=== PATIENT | female | born 1940 | race Caucasian/White ===

== ENCOUNTER → 2016-10-24 | Outpatient (REF) | payer MEDICARE ==
[2016-10-24 11:33] LABS: MEAN CORPUSCULAR HEMOGLOBIN 32.3 pg (27.0-33.0); MEAN CORPUSCULAR HGB CONC 32.9 g/dl (32.0-36.5); MEAN CORPUSCULAR VOLUME 98.3 fl (80.0-96.0); RED CELL DISTRIBUTION WIDTH 14.8 % (11.5-14.5); WHITE BLOOD COUNT 5.4 K/mm3 (4.0-10.0)
[2016-10-24 11:56] LABS: ALBUMIN 3.5 GM/DL (3.2-5.2); ALBUMIN/GLOBULIN RATIO 0.97 (1.00-1.93); ALKALINE PHOSPHATASE 100 U/L (45-117); ALT/SGPT 14 U/L (12-78); ANION GAP 5 MEQ/L (8-16); AST/SGOT 18 U/L (15-37); BILIRUBIN,TOTAL 0.3 MG/DL (0.2-1.0); BLOOD UREA NITROGEN 13 MG/DL (7-18); CALCIUM LEVEL 8.7 MG/DL (8.8-10.2); CARBON DIOXIDE LEVEL 28 MEQ/L (21-32); CHLORIDE LEVEL 108 MEQ/L (98-107); CHOLESTEROL LEVEL 254 MG/DL (<200); CREATININE FOR GFR 0.82 MG/DL (0.55-1.02); GLOMERULAR FILTRATION RATE > 60.0 (>39); GLUCOSE, FASTING 93 MG/DL (83-110); POTASSIUM SERUM 4.3 MEQ/L (3.5-5.1); SODIUM LEVEL 141 MEQ/L (136-145); TOTAL PROTEIN 7.1 GM/DL (6.4-8.2); TRIGLYCERIDES LEVEL 52 MG/DL (<150)
== END ==
LOC: M SFHCCLAY 08:35
PROVIDERS: ATTEND Nurse Practitioner Family
DX: E78.4 Other hyperlipidemia (principal)

== ENCOUNTER → 2017-01-23 | Outpatient (CLI) | payer MEDICARE ==
--- NOTE | 2017-01-23 09:57 | REP ---
Right ankle four views: Comparison is 06/04/2015. There are faintly visible calcifications interposed between the distal fibula and lateral cortex of the talus. This is unchanged. This could represent intra-articular calcification or chondrocalcinosis. There is no fracture or dislocation. The joint spaces are normal. There are no other calcifications. No effusion. There are no calcaneal spurs. This talar joint is unremarkable. Impression: Intra-articular calcifications laterally as described, chondrocalcinosis versus intra-articular joint calcification. 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 No change from the prior study. Signed by James Yeh MD 01/23/2017 09:49 A
== END ==
LOC: M CLY 09:15
PROVIDERS: ATTEND Nurse Practitioner Family
DX: M25.471 Effusion, right ankle (principal); M11.20 Other chondrocalcinosis, unspecified site; E78.4 Other hyperlipidemia; Z79.899 Other long term (current) drug therapy
CPT/HCPCS: 73610; 82310; 82728; 82746; 83735; 83970; 84100; 84436; 84443; 84466; 84479; 85027; 85652; 86038; 86431; G0463

== ENCOUNTER → 2017-01-23 | Outpatient (REF) | payer MEDICARE ==
[2017-01-23 17:57] LABS: MEAN CORPUSCULAR HEMOGLOBIN 33.3 pg (27.0-33.0); MEAN CORPUSCULAR HGB CONC 33.9 g/dl (32.0-36.5); MEAN CORPUSCULAR VOLUME 98.4 fl (80.0-96.0); RED CELL DISTRIBUTION WIDTH 15.4 % (11.5-14.5); WHITE BLOOD COUNT 5.2 K/mm3 (4.0-10.0)
[2017-01-24 09:52] LABS: FERRITIN 5 NG/ML (8-252); MAGNESIUM LEVEL 2.3 MG/DL (1.8-2.4); PERCENT SATURATION 18.2 % (13.2-45.0); PHOSPHORUS LEVEL 2.9 MG/DL (2.5-4.9); T UPTAKE 32 % (30-39); THYROXINE (T4) 6.5 UG/DL (4.5-12.0); TOTAL IRON BINDING CAPACITY 341 UG/DL (250-450)
[2017-01-24 09:59] LABS: FOLATE 10.8 NG/ML (>5.4)
[2017-01-25 14:15] LABS: SJOGREN'S ANTI SS-A <0.2 AI (0.0-0.9); SJOGREN'S ANTI SS-B <0.2 AI (0.0-0.9)
== END ==
LOC: M SFHCCLAY 09:13
PROVIDERS: ATTEND Nurse Practitioner Family
DX: M11.20 Other chondrocalcinosis, unspecified site (principal); M25.471 Effusion, right ankle

== ENCOUNTER → 2017-01-24 | Outpatient (REF) | payer MEDICARE | LOC: M SFHCCLAY 07:38 | PROVIDERS: ATTEND Nurse Practitioner Family | DX: M11.20 Other chondrocalcinosis, unspecified site (principal); Z53.9 Procedure and treatment not carried out, unspecified reason ==

== ENCOUNTER → 2017-01-30 | Outpatient (REF) | payer MEDICARE | LOC: M SFHCCLAY 07:58 | PROVIDERS: ATTEND Nurse Practitioner Family | DX: M11.20 Other chondrocalcinosis, unspecified site (principal); Z79.899 Other long term (current) drug therapy ==

== ENCOUNTER → 2017-07-25 | Outpatient (REF) | payer MEDICARE ==
[2017-07-25 12:07] LABS: ALBUMIN 3.7 GM/DL (3.2-5.2); ALBUMIN/GLOBULIN RATIO 1.03 (1.00-1.93); ALKALINE PHOSPHATASE 102 U/L (45-117); ALT/SGPT 13 U/L (12-78); AST/SGOT 20 U/L (7-37); BILIRUBIN,DIRECT < 0.1 MG/DL (0.0-0.2); BILIRUBIN,TOTAL 0.4 MG/DL (0.2-1.0); CHOLESTEROL LEVEL 230 MG/DL (<200); CHOLESTEROL RISK RATIO 3.239 (<5); HDL CHOLESTEROL 71 MG/DL (>40); LDL CHOLESTEROL 146.6 MG/DL (<100); NON-HDL-C 159 MG/DL; TOTAL PROTEIN 7.3 GM/DL (6.4-8.2); TRIGLYCERIDES LEVEL 62 MG/DL (<150)
== END ==
LOC: M SFHCCLAY 08:57
DX: E78.4 Other hyperlipidemia (principal)
CPT/HCPCS: 80076

== ENCOUNTER → 2017-11-13 | Outpatient (REF) | payer MEDICARE ==
[2017-11-13 11:41] LABS: CHOLESTEROL LEVEL 228 MG/DL (<200); HDL CHOLESTEROL 75 MG/DL (>40); LDL CHOLESTEROL 139.8 MG/DL (<100); NON-HDL-C 153 MG/DL; TRIGLYCERIDES LEVEL 66 MG/DL (<150)
== END ==
LOC: M SFHCCLAY 08:02
DX: E78.4 Other hyperlipidemia (principal)
CPT/HCPCS: 80061

== ENCOUNTER → 2018-09-16 | Outpatient (REF) | payer MEDICARE ==
[2018-09-16 17:19] LABS: ALBUMIN 3.7 GM/DL (3.2-5.2); ALT/SGPT 20 U/L (12-78); BILIRUBIN,TOTAL 0.3 MG/DL (0.2-1.0); BLOOD UREA NITROGEN 19 MG/DL (7-18); CALCIUM LEVEL 8.7 MG/DL (8.8-10.2); CARBON DIOXIDE LEVEL 31 MEQ/L (21-32); CHLORIDE LEVEL 106 MEQ/L (98-107); CHOLESTEROL LEVEL 283 MG/DL (<200); CHOLESTEROL RISK RATIO 3.985 (<5); CREATININE FOR GFR 0.95 MG/DL (0.55-1.30); GLOMERULAR FILTRATION RATE > 60.0 (>39); GLUCOSE, FASTING 96 MG/DL (70-100); HDL CHOLESTEROL 71 MG/DL (>40); LDL CHOLESTEROL 197 MG/DL (<100); NON-HDL-C 212 MG/DL; SODIUM LEVEL 142 MEQ/L (136-145); TOTAL PROTEIN 7.2 GM/DL (6.4-8.2); TRIGLYCERIDES LEVEL 77 MG/DL (<150)
[2018-09-16 17:22] LABS: HEMATOCRIT 35.5 % (36.0-47.0); HEMOGLOBIN 11.8 g/dl (12.0-15.5); MEAN CORPUSCULAR HEMOGLOBIN 31.4 pg (27.0-33.0); MEAN CORPUSCULAR HGB CONC 33.2 g/dl (32.0-36.5); MEAN CORPUSCULAR VOLUME 94.4 fl (80.0-96.0); PLATELET COUNT, AUTOMATED 236 10^3/uL (150-450); RED BLOOD COUNT 3.76 10^6/uL (4.00-5.40); WHITE BLOOD COUNT 5.3 10^3/uL (4.0-10.0)
== END ==
LOC: M SFHCCLAY 09:18
PROVIDERS: ATTEND Nurse Practitioner Family
DX: R60.9 Edema, unspecified (principal); E78.49 Other hyperlipidemia

== ENCOUNTER → 2018-11-19 | Outpatient (REF) | payer MEDICARE ==
[2018-11-19 11:32] LABS: HEMATOCRIT 34.6 % (36.0-47.0); HEMOGLOBIN 11.7 g/dl (12.0-15.5); MEAN CORPUSCULAR HEMOGLOBIN 32.7 pg (27.0-33.0); MEAN CORPUSCULAR HGB CONC 33.8 g/dl (32.0-36.5); MEAN CORPUSCULAR VOLUME 96.6 fl (80.0-96.0); PLATELET COUNT, AUTOMATED 230 10^3/uL (150-450); RED BLOOD COUNT 3.58 10^6/uL (4.00-5.40); WHITE BLOOD COUNT 5.5 10^3/uL (4.0-10.0)
[2018-11-19 11:37] LABS: CHOLESTEROL RISK RATIO 3.402 (<5); PERCENT SATURATION 21.3 % (13.2-45.0)
[2018-11-19 11:45] LABS: FOLATE 14.1 NG/ML (>5.4)
== END ==
LOC: M SFHCCLAY 08:23
PROVIDERS: ATTEND Nurse Practitioner Family
DX: D64.9 Anemia, unspecified (principal); E78.49 Other hyperlipidemia

== ENCOUNTER → 2018-12-19 | Outpatient (CLI) | payer MEDICARE ==
--- NOTE | 2018-12-19 12:34 | REP ---
Bilateral lower extremity artery duplex ultrasound of the: Right lower extremity: Right brachial artery peak systole: 170 mmHg. Right dorsalis pedis peak systole: 166 mmHg. Right MARINE SERVICE STATION ATTENDANT peak systole: 162 mmHg. BLAYNE: 0.98. Peak Systolic Phasicity Velocity MANAGER RAIL 129 triphasic Profunda 68.7 triphasic SFA prox 86.7 triphasic SFA mid 86.8 triphasic SFA dist 75.0 triphasic Pop 67.6 triphasic SRIDHAR prox 61.9 triphasic Tib/P tr 86.1 monophasic MARINE SERVICE STATION ATTENDANT pr 113/393 monophasic MARINE SERVICE STATION ATTENDANT dst 46.8 monophasic SRIDHAR dst 85.2 monophasic Left lower extremity: Left brachial peak systole: 162 mmHg Left dorsalis pedis peak systole: 164 mmHg. Left MARINE SERVICE STATION ATTENDANT peak systole: 156 mmHg. BLAYNE 0.96. Peak Systolic Phasicity Velocity MANAGER RAIL 60.9 biphasic Profunda 48.8 biphasic SFA prox 79.7 biphasic SFA mid 69.9 biphasic SFA dist 66.6 biphasic Pop 56.4 biphasic SRIDHAR prox 47.6 biphasic Tib/P tr 46.2 biphasic MARINE SERVICE STATION ATTENDANT pr 72.7 biphasic MARINE SERVICE STATION ATTENDANT dst 55.1 biphasic SRIDHAR dst 71.2 biphasic There is minimal atheromatous plaque at the thighs bilaterally. There is moderate atheromatous plaque in the calves bilaterally. There is a stenosis in the right proximal MARINE SERVICE STATION ATTENDANT. Wave forms distal to the right MARINE SERVICE STATION ATTENDANT are monophasic. The BLAYNE is maybe slightly overestimated because of mildly echogenic calf vessels. Fluid is incidentally identified in the right ankle joint . Electronically Signed by James Yeh MD 12/19/2018 12:26 P
== END ==
LOC: M RAD 08:31
PROVIDERS: ATTEND Surgery Vascular Surgery
DX: R09.89 Other specified symptoms and signs involving the circulatory and respiratory systems (principal)

== ENCOUNTER → 2018-12-31 | Outpatient (CLI) | payer MEDICARE ==
[~2018-12-31] MED LIST: ADVI100T PO; EQ A EXT; HYDR12CA PO; PRAV10TA3 PO
[2018-12-31 18:47] LABS: BASO % 0.5 % (0.0-1.0); EOS # 0.3 10^3/uL (0.0-0.50); HEMATOCRIT 34.6 % (36.0-47.0); HEMOGLOBIN 11.5 g/dl (12.0-15.5); LYMPH # 1.9 10^3/uL (1.5-4.5); MEAN CORPUSCULAR HEMOGLOBIN 31.4 pg (27.0-33.0); MEAN CORPUSCULAR HGB CONC 33.2 g/dl (32.0-36.5); MEAN CORPUSCULAR VOLUME 94.5 fl (80.0-96.0); MONO # 0.8 10^3/uL (0.0-0.8); MONO % 10.2 % (0.0-5.0); NEUTROPHILS # 4.5 10^3/uL (1.8-7.7); PLATELET COUNT, AUTOMATED 277 10^3/uL (150-450); RED BLOOD COUNT 3.66 10^6/uL (4.00-5.40); WHITE BLOOD COUNT 7.6 10^3/uL (4.0-10.0)
[2018-12-31 19:01] LABS: BLOOD UREA NITROGEN 16 MG/DL (7-18); CALCIUM LEVEL 8.6 MG/DL (8.8-10.2); CARBON DIOXIDE LEVEL 28 MEQ/L (21-32); CHLORIDE LEVEL 106 MEQ/L (98-107); CREATININE FOR GFR 0.89 MG/DL (0.55-1.30); GLOMERULAR FILTRATION RATE > 60.0 (>39); GLUCOSE, FASTING 92 MG/DL (70-100); SODIUM LEVEL 140 MEQ/L (136-145)
== END ==
LOC: M LAB 16:55
PROVIDERS: ATTEND Surgery Vascular Surgery
DX: I70.203 Unspecified atherosclerosis of native arteries of extremities, bilateral legs (principal); I87.2 Venous insufficiency (chronic) (peripheral)

== ENCOUNTER 2019-01-07 06:56 | Outpatient (CLI) | payer MEDICARE ==
[~2019-01-07 06:56] MED LIST changes: +HEPARIN 1,000 UNITS/ML 10ML VIAL (FOR RADIOLOGY& DIALYSIS ONLY) As Ordered ONE; +ISOVUE-300 61% 50ML VIAL (Q9967) As Ordered ONE; +LIDOCAINE 2% MDV 20 ML VIAL As Ordered ONE; +MIDAZOLAM INJ 2 MG/2 ML VIAL (J2250) As Ordered ONE; +fentaNYL 100 MCG/2 ML INJECTION (J3010) As Ordered ONE
[2019-01-07] MEDS ORDERED: ISOVUE-300 61% 50ML VIAL (Q9967) As Ordered ONE (08:06)
[2019-01-07] MEDS ORDERED: NITROGLYCERIN IN D5W 25MG/250ML (100MCG/ML) As Ordered ONE (08:39)
--- NOTE | 2019-01-07 09:31 | ROOPDOC ---
[facility] Report Of Operation Report of Operation DATE OF PROCEDURE: 01/07/19 PREPROCEDURE DIAGNOSES: Atherosclerosis of the upper [place] vessels bilateral lower extremity POSTPROCEDURE DIAGNOSES: Same PROCEDURE: 1. Ultrasound-guided access left common femoral artery 2. Aortoiliofemoral femoral arteriogram with oblique views 3. Right lower extremity arteriogram and runoff, with selection of the common femoral artery and the popliteal artery 4. Angioplasty of the tibioperoneal trunk and proximal peroneal artery with a 3 x 100 starling balloon 5. Angioplasty of the peroneal artery with a 2 x 2 120 starling balloon 6. Completion arteriogram 7. Minx closure left common femoral artery SURGEON: Suyapa Maki MD ANESTHESIA: Local anesthesia with lidocaine 5 mL. Moderate intravenous conscious sedation was supervised by Dr. Maki. The patient was independently monitored by registered nurse assigned to the Department of radiology using automated blood pressure, EKG, and pulse oximetry. The detail conscious record is permanently stored in the hospital information system. The following is the conscious sedation record: Start time 07:52, stop time 08:59, Versed 1 mg IV, fentanyl 50 g IV CONTRAST: Isovue 50 mL INDICATION FOR PROCEDURE: This is a very pleasant 78-year-old patient with significant peripheral edema and concern for arterial insufficiency on recent noninvasive study. Her right lower extremity would benefit from at least 20-30 mmHg compression, but based on her noninvasive study we were not sure she had another tibial flow to tolerate compression. There was also concern for biphasic flow throughout the left lower extremity so we will access from the left common femoral artery and treat any left iliofemoral disease if present. Risks benefits and alternatives to an arteriogram with potential intervention were explained to the patient. We also discussed the procedure with her daughter. All questions were answered. Informed consent was obtained. INTERPRETATION: 1. The distal aorta iliofemoral arteries are widely patent. No proximal stenosis noted on the left or the right with AP or TEMPLE views. 2. The right lower extremity profunda, SSA, popliteal arteries are widely patent. 3. The right anterior tibial artery is widely patent and is the largest and primary tibial flow to the foot. The tibioperoneal trunk has several areas of 70% stenosis proximally and mid, with milder stenosis distal. This limits inflow to the peroneal and posterior tibial arteries which are patent with only mild nonflow limiting stenosis. 4. After angioplasty the tibia and peroneal trunk, there is less than 20% stenosis and a dramatic improvement inflow into the posterior tibial artery. There is some spasm in the peroneal artery after angioplasty, which was relieved with nitroglycerin and low atmosphere angioplasty of the peroneal artery. Completion arteriogram had excellent 3 vessel runoff to the foot. 5. Minx closure in the left common femoral artery was successful with good hemostasis. PROCEDURE: The patient was brought to the angiographic suite in stable condition and placed supine on the fluoroscopic table. Her bilateral groins were prepped and draped in a sterile fashion. A timeout was performed. Sedation was administered without complication. Local anesthesia was administered to the skin and subcutaneous tissue in the left groin and a microneedle was used to access the common femoral artery over the femoral head under fluoroscopic and ultrasound guidance. A wire was passed through this access and a micro-sheath was placed. We then advanced a Glidewire into the distal aorta through this access under fluoroscopic guidance and a 6 Greek sheath was placed and flushed with saline. An Omni flushed catheter was advanced into the distal aorta and AP and TEMPLE views were obtained. The distal aorta and iliac system appeared widely patent. No proximal femoral stenosis noted. We then went up and over the bifurcation with her catheter Glidewire and selected the right common femoral artery. Through this access and arteriogram confirmed widely patent inflow through the proximal femoral system including the profunda in the SFA. We then advanced her catheter over the wire into the SFA and distal SFA and popliteal arteries were widely patent. We then advanced R catheter into the popliteal artery and tibial views were obtained. We did see some focal tight stenoses and heavy plaque in the proximal and mid tibioperoneal trunk, lesser so in the distal tibioperoneal trunk, with a 50% stenosis at the origin of the peroneal artery. There is about 30% stenosis in the mid posterior tibial artery but it does not appear flow-limiting. There is some mild stenosis throughout the peroneal artery but it does not appear flow-limiting. The anterior tibial artery is large widely patent in the main runoff to the foot. We then exchanged her sheath over the wire for a 90 cm 6 Greek sheath and advanced into the popliteal artery. The sheath was flushed with saline. We exchanged her wire for a V 18 and advanced this into the peroneal artery under fluoroscopic guidance. We then angioplasty the tibioperoneal trunk and proximal peroneal artery with a 3 x 100 starling balloon for three-minute inflations. Following this, there was still residual stenosis of about 50% the TP trunk and some spasm in the proximal p eroneal artery. A second inflation was performed. Following this, we retracted her balloon until it was only in the tibioperoneal trunk and did a higher pressure inflation for 3 minutes. Following this, there is marked improvement in the tibioperoneal trunk and much improved flow through the posterior tibial artery, but we noted spasm of the proximal peroneal artery limiting any distal flow. We then advanced the V 18 wire through to the distal peroneal artery and selected a 2 x 220 ministerio balloon and angioplasty the entire peroneal artery for three-minute inflations. Following this, there was improvement, but still some spasm in the vessel. We then administer 200 g of nitroglycerin IV through the sheath into the tibial vessels. A second angioplasty of 2 minutes was performed at low atmospheres and following this there was excellent 3 vessel runoff through the entire tibial system. We then exchanged her sheath for short 6 Greek sheath and deployed a minx closure device the left common femoral artery with good hemostasis. Pressure was held at the left groin for 10 minutes and sterile dressings were applied. The patient was taken back to recovery in stable condition. ESTIMATED BLOOD LOSS: Approximately 5 mL. COMPLICATIONS: None. PLAN: Patient will be monitored for 4 hours postprocedure on bedrest. We will see her back in clinic in 1 week to check her groin access site and the per fusion to her foot. We will plan to give her prescription for 20-30 mm compression stockings at her next visit if her perfusion is intact. She should elevate her bilateral lower extremities above the level of the heart at least 30 minutes 3 times a day to help with venous return and decrease swelling. No stent was placed and therefore no additional anticoagulation was given postprocedure. She should continue aspirin daily. The patient and her daughter were thoroughly counseled. SUYAPA MAKI MD Jan 07, 2019 09:31
[2019-01-07 13:10] VITALS: BP 117/64
== END 2019-01-07 13:30 | disposition home or self-care (01) ==
LOC: M IRPRO 06:56
PROVIDERS: ATTEND Surgery Vascular Surgery
DX: I70.203 Unspecified atherosclerosis of native arteries of extremities, bilateral legs (principal); I87.2 Venous insufficiency (chronic) (peripheral); I10 Essential (primary) hypertension; E78.00 Pure hypercholesterolemia, unspecified
CPT/HCPCS: 37228; 75710; 99152; 99153; C1725; C1760; C1769; C1887; C1894; J2250; J3010; Q9967

== ENCOUNTER → 2019-01-20 | Outpatient (REF) | payer MEDICARE ==
[~2019-01-20] MED LIST changes: -HEPARIN 1,000 UNITS/ML 10ML VIAL (FOR RADIOLOGY& DIALYSIS ONLY) As Ordered ONE; -ISOVUE-300 61% 50ML VIAL (Q9967) As Ordered ONE; -LIDOCAINE 2% MDV 20 ML VIAL As Ordered ONE; -MIDAZOLAM INJ 2 MG/2 ML VIAL (J2250) As Ordered ONE; -fentaNYL 100 MCG/2 ML INJECTION (J3010) As Ordered ONE
== END ==
LOC: M SFHCPLAZ 10:14
PROVIDERS: ATTEND Dermatology
DX: D22.62 Melanocytic nevi of left upper limb, including shoulder (principal); L57.0 Actinic keratosis; L57.8 Other skin changes due to chronic exposure to nonionizing radiation

== ENCOUNTER → 2019-02-26 | Outpatient (REF) | payer MEDICARE ==
[2019-02-26 11:23] LABS: HEMOGLOBIN 11.5 g/dl (12.0-15.5); MEAN CORPUSCULAR HEMOGLOBIN 32.2 pg (27.0-33.0); MEAN CORPUSCULAR HGB CONC 33.8 g/dl (32.0-36.5); MEAN CORPUSCULAR VOLUME 95.2 fl (80.0-96.0); PLATELET COUNT, AUTOMATED 261 10^3/uL (150-450); RED BLOOD COUNT 3.57 10^6/uL (4.00-5.40); WHITE BLOOD COUNT 6.5 10^3/uL (4.0-10.0)
[2019-02-26 11:49] LABS: CHOLESTEROL RISK RATIO 3.31 (<5)
== END ==
LOC: M SFHCCLAY 08:33
PROVIDERS: ATTEND Nurse Practitioner Family
DX: D64.9 Anemia, unspecified (principal); E78.49 Other hyperlipidemia

== ENCOUNTER → 2019-04-09 | Outpatient (CLI) | payer MEDICARE ==
--- NOTE | 2019-04-09 16:49 | REP ---
Bilateral lower extremity arterial Doppler ultrasound: History: Atherosclerosis. Findings: There is mild plaquing seen in the thigh arteries bilaterally. Monophasic waveforms are noted in the arteries distal to the tibioperoneal trunk on the right. Stenotic velocities are no longer apparent in the right proximal PENCIL MAKER. Ankle brachial indices are normal today measured at 1.05 on the right and 1.09 on the left. Right lower extremity arterial Doppler velocity chart: Right CF A 98 cm/S Profunda 67 Proximal SFA 92 Mid SFA 92 Distal SFA 84 Popliteal 75 Proximal PENCIL MAKER 41 Tibioperoneal trunk 96 Proximal PENCIL MAKER 12 Distal PENCIL MAKER 11 Distal AT A 81 Left lower extremity arterial Doppler velocity chart: Left CF A 62 cm/S Profunda 62 Proximal SFA 78 Mid SFA 79 Distal SFA 65 Popliteal 73 Proximal AT A 58 Tibioperoneal trunk 57 Proximal PENCIL MAKER 143 Distal PENCIL MAKER 70 Distal AT A 73. Electronically Signed by Javier Aponte MD 04/09/2019 04:40 P
== END ==
LOC: M RAD 12:10
PROVIDERS: ATTEND Surgery Vascular Surgery
DX: I70.203 Unspecified atherosclerosis of native arteries of extremities, bilateral legs (principal)

== ENCOUNTER → 2019-06-26 | Outpatient (REF) | payer MEDICARE ==
[2019-06-26 11:48] LABS: HEMATOCRIT 37.8 % (36.0-47.0); HEMOGLOBIN 12.2 g/dl (12.0-15.5); MEAN CORPUSCULAR HGB CONC 32.3 g/dl (32.0-36.5); MEAN CORPUSCULAR VOLUME 95.9 fl (80.0-96.0); PLATELET COUNT, AUTOMATED 257 10^3/uL (150-450); RED BLOOD COUNT 3.94 10^6/uL (4.00-5.40); WHITE BLOOD COUNT 9.5 10^3/uL (4.0-10.0)
[2019-06-26 12:11] LABS: CHOLESTEROL RISK RATIO 3.281 (<5)
== END ==
LOC: M SFHCCLAY 09:23
PROVIDERS: ATTEND Nurse Practitioner Family
DX: D64.9 Anemia, unspecified (principal); E78.49 Other hyperlipidemia

== ENCOUNTER → 2019-10-22 | Outpatient (REF) | payer MEDICARE ==
[2019-10-22 12:38] LABS: ALBUMIN 3.5 GM/DL (3.2-5.2); ALT/SGPT 18 U/L (12-78); BILIRUBIN,DIRECT < 0.1 MG/DL (0.0-0.2); BILIRUBIN,TOTAL 0.6 MG/DL (0.2-1.0); CHOLESTEROL LEVEL 182 MG/DL (<200); CHOLESTEROL RISK RATIO 3.033 (<5); HDL CHOLESTEROL 60 MG/DL (>40); LDL CHOLESTEROL 110 MG/DL (<100); NON-HDL-C 122 MG/DL; TOTAL PROTEIN 7.6 GM/DL (6.4-8.2); TRIGLYCERIDES LEVEL 60 MG/DL (<150)
== END ==
LOC: M SFHCCLAY 08:07
PROVIDERS: ATTEND Nurse Practitioner Family
DX: E78.5 Hyperlipidemia, unspecified (principal)

== ENCOUNTER → 2019-11-06 | Outpatient (CLI) | payer MEDICARE ==
--- NOTE | 2019-11-06 11:36 | REP ---
BILATERAL LOWER EXTREMITY DUPLEX DOPPLER ARTERIAL ULTRASOUND: Real-time ultrasound evaluation and duplex Doppler interrogation of the bilateral lower extremity arterial systems is performed. There is mild to moderate scattered calcific plaque bilaterally, more so in the lower legs. There is no duplex Doppler sonographic evidence of hemodynamically significant stenosis focally bilaterally. BLAYNE bilaterally is 1.07. There are diffuse biphasic and triphasic waveforms seen in the bilateral lower extremity arterial systems. Right Peak Left Peak Systolic Velocity Systolic velocity Common femoral artery 95 cm/s 69 cm/s Profunda 65 cm/s 48 cm/s Proximal SFA 66 cm/s 64 cm/s Mid SFA 74 cm/s 69 cm/s Distal SFA 58 cm/s 50 cm/s Popliteal 49 cm/s 59 cm/s Proximal SRIDHAR 70 cm/s 53 cm/s Tibial peroneal trunk 62 cm/s 73 cm/s Proximal CONTRACT ADMIN 55 cm/s 38 cm/s Distal CONTRACT ADMIN 47 cm/s 53 cm/s Distal SRIDHAR 63 cm/s 50 cm/s Electronically Signed by James Guallpa MD 11/06/2019 12:57 P
== END ==
LOC: M RAD 09:19
PROVIDERS: ATTEND Surgery Vascular Surgery
DX: I70.213 Atherosclerosis of native arteries of extremities with intermittent claudication, bilateral legs (principal)

== ENCOUNTER → 2020-04-21 | Outpatient (REF) | payer MEDICARE ==
[2020-04-21 11:36] LABS: HEMATOCRIT 36.3 % (36.0-47.0); HEMOGLOBIN 11.9 g/dl (12.0-15.5); MEAN CORPUSCULAR HEMOGLOBIN 30.9 pg (27.0-33.0); MEAN CORPUSCULAR HGB CONC 32.8 g/dl (32.0-36.5); MEAN CORPUSCULAR VOLUME 94.3 fl (80.0-96.0); PLATELET COUNT, AUTOMATED 247 10^3/uL (150-450); RED BLOOD COUNT 3.85 10^6/uL (4.00-5.40); WHITE BLOOD COUNT 6.7 10^3/uL (4.0-10.0)
[2020-04-21 12:15] LABS: ALBUMIN 3.5 GM/DL (3.2-5.2); BILIRUBIN,TOTAL 0.4 MG/DL (0.2-1.0); CALCIUM LEVEL 9.4 MG/DL (8.8-10.2); CHOLESTEROL RISK RATIO 2.578 (<5); CREATININE FOR GFR 1.08 MG/DL (0.55-1.30); GLOMERULAR FILTRATION RATE 52.1 (>39); POTASSIUM SERUM 3.8 MEQ/L (3.5-5.1); TOTAL PROTEIN 7.5 GM/DL (6.4-8.2)
== END ==
LOC: M SFHCCLAY 08:11
PROVIDERS: ATTEND Nurse Practitioner Family
DX: I87.2 Venous insufficiency (chronic) (peripheral) (principal); E78.5 Hyperlipidemia, unspecified

== ENCOUNTER → 2020-05-31 | Outpatient (CLI) | payer MEDICARE ==
--- NOTE | 2020-05-31 11:05 | REP ---
INDICATION: ATHEROSCLEROSIS. COMPARISON: Comparison study November 06, 2019.. TECHNIQUE: Bilateral lower extremity arterial Doppler ultrasound. FINDINGS: Ankle brachial indices are normal measured at 1.08 on the right and 1.15 on the left. Brachial artery pressures are symmetric. Predominantly biphasic arterial waveforms are noted in the lower extremities bilaterally. No significant stenosis or occlusion is seen on either side. Findings essentially unchanged. Right lower extremity arterial Doppler velocity chart: Right UNDERWRITING TECHNICIAN PSV 104 cm/S Profundal 64 Proximal SFA 64 Mid SFA 73 Distal SFA 57 Popliteal 36 Proximal SRIDHAR 55 Tibial-peroneal trunk 45 Proximal OIL FIELD EQUIPMENT MECHANIC 67 Distal OIL FIELD EQUIPMENT MECHANIC 53 Distal SRIDHAR 58 Left lower extremity arterial Doppler velocity chart: Left UNDERWRITING TECHNICIAN PSV 89 cm/S Profundal 56 Proximal SFA 71 Mid SFA 73 Distal SFA 46 Popliteal 45 Proximal SRIDHAR 46 Tibial-peroneal trunk 28 Proximal OIL FIELD EQUIPMENT MECHANIC 53 Distal OIL FIELD EQUIPMENT MECHANIC 48 Distal SRIDHAR 85 IMPRESSION: Atherosclerotic changes as noted above. No high-grade stenosis or occlusion. Findings essentially unchanged. <Electronically signed by Wilbur Aponte > 05/31/20 [id number]
== END ==
LOC: M RAD 09:23
PROVIDERS: ATTEND Physician Assistant
DX: I70.213 Atherosclerosis of native arteries of extremities with intermittent claudication, bilateral legs (principal)

== ENCOUNTER → 2020-10-22 | Outpatient (REF) | payer MEDICARE ==
[2020-10-22 12:27] LABS: CHOLESTEROL RISK RATIO 2.323 (<5)
== END ==
LOC: M SFHCCLAY 08:14
PROVIDERS: ATTEND Nurse Practitioner Family
DX: E78.49 Other hyperlipidemia (principal)

== ENCOUNTER → 2021-04-27 | Outpatient (REF) | payer MEDICARE ==
[2021-04-27 11:24] LABS: HEMATOCRIT 35.6 % (36.0-47.0); MEAN CORPUSCULAR HEMOGLOBIN 31.7 pg (27.0-33.0); MEAN CORPUSCULAR HGB CONC 33.7 g/dl (32.0-36.5); MEAN CORPUSCULAR VOLUME 93.9 fl (80.0-96.0); PLATELET COUNT, AUTOMATED 205 10^3/uL (150-450); RED BLOOD COUNT 3.79 10^6/uL (4.00-5.40); WHITE BLOOD COUNT 7.2 10^3/uL (4.0-10.0)
[2021-04-27 11:56] LABS: ALBUMIN 3.6 GM/DL (3.2-5.2); BILIRUBIN,TOTAL 0.4 MG/DL (0.2-1.0); CALCIUM LEVEL 9.3 MG/DL (8.8-10.2); CHOLESTEROL RISK RATIO 2.75 (<5); CREATININE FOR GFR 1.13 MG/DL (0.55-1.30); GLOMERULAR FILTRATION RATE 49.3 (>32); POTASSIUM SERUM 3.8 MEQ/L (3.5-5.1); TOTAL PROTEIN 7.1 GM/DL (6.4-8.2)
== END ==
LOC: M SFHCCLAY 08:59
PROVIDERS: ATTEND Nurse Practitioner Family
DX: E78.5 Hyperlipidemia, unspecified (principal)

== ENCOUNTER → 2021-05-12 | Outpatient (CLI) | payer MEDICARE ==
--- NOTE | 2021-05-12 13:52 | REP ---
INDICATION: UNSP ATHSCL KOI ARTERIS BRIANNA COMPARISON: None. TECHNIQUE: Real-time sonographic evaluation of the lower extremity arteries bilateral with Doppler FINDINGS: All numeric values represent peak systolic velocities in cm/SEC On the right: The ankle brachial index is 1.09 LOUVER DOOR ASSEMBLER: 87.6 triphasic Profunda: 63.6 biphasic SFA proximal: 56.7 triphasic SFA Mid: 58.8 biphasic SFA distal: 56.4 biphasic Popliteal: 46.3 biphasic SRIDHAR proximal: 58.8 biphasic Tibioperoneal trunk: 60.9 biphasic BUGGY MAN proximal: 55.1 biphasic BUGGY MAN distal: 62.1 biphasic SRIDHAR distal: 72.7 biphasic Peroneal proximal: 60.2 biphasic Peroneal distal: 41.1 biphasic On the left: The ankle brachial index is 1.04 LOUVER DOOR ASSEMBLER: 71.2 triphasic Profunda: 50.3 triphasic SFA proximal: 72.5 triphasic SFA Mid: 61.1 triphasic SFA distal: 67.9 triphasic Popliteal: 69.2 triphasic SRIDHAR proximal: 70.0 triphasic Tibioperoneal trunk: 60.3 triphasic BUGGY MAN proximal: 70.5 triphasic BUGGY MAN distal: 71.5 triphasic SRIDHAR distal: 88.6 triphasic Peroneal proximal: 75.8 triphasic Peroneal distal: 58.2 triphasic Moderate amount of plaque was seen bilaterally. There is no evidence of a significant stenosis or occlusion on either side IMPRESSION: As above <Electronically signed by Josue Pastor > 05/12/21 [id number]
== END ==
LOC: M RAD 12:16
PROVIDERS: ATTEND Surgery Vascular Surgery
DX: I70.203 Unspecified atherosclerosis of native arteries of extremities, bilateral legs (principal); R09.89 Other specified symptoms and signs involving the circulatory and respiratory systems

== ENCOUNTER → 2022-06-01 | Outpatient (REF) | payer MEDICARE ==
[2022-06-01 11:45] LABS: BASO # 0.1 10^3/uL (0.0-0.2); EOS # 0.4 10^3/uL (0.0-0.5); HEMATOCRIT 35.2 % (36.0-47.0); HEMOGLOBIN 11.5 g/dl (12.0-15.5); LYMPH # 2.1 10^3/uL (1.5-5.0); MEAN CORPUSCULAR HEMOGLOBIN 31.3 pg (27.0-33.0); MEAN CORPUSCULAR HGB CONC 32.7 g/dl (32.0-36.5); MEAN CORPUSCULAR VOLUME 95.9 fl (80.0-96.0); MONO # 0.9 10^3/uL (0.0-0.8); MONO % 12.2 % (2.0-8.0); NEUTROPHILS # 3.7 10^3/uL (1.5-8.5); NEUTROPHILS % 51.5 % (36.0-66.0); PLATELET COUNT, AUTOMATED 262 10^3/uL (150-450); RED BLOOD COUNT 3.67 10^6/uL (4.00-5.40); WHITE BLOOD COUNT 7.2 10^3/uL (4.0-10.0)
[2022-06-01 12:26] LABS: ALBUMIN 3.4 G/DL (3.2-5.2); BILIRUBIN,TOTAL 0.3 MG/DL (0.3-1.2); CALCIUM LEVEL 9.1 MG/DL (8.3-10.6); CHOLESTEROL RISK RATIO 2.85 (<5); CREATININE FOR GFR 1.04 MG/DL (0.55-1.30); GLOMERULAR FILTRATION RATE 54.1 (>32); HDL CHOLESTEROL 60.9 MG/DL (>40); LDL CHOLESTEROL 100.5 MG/DL (<100); POTASSIUM SERUM 4.4 MMOL/L (3.5-5.1); TOTAL PROTEIN 6.8 G/DL (5.7-8.2)
[2022-06-01 12:27] LABS: FREE T4 0.87 NG/DL (0.89-1.76); THYROID STIMULATING HORMONE 2.413 uIU/ML (0.55-4.78)
== END ==
LOC: M SFHCCLAY 09:11
PROVIDERS: ATTEND Nurse Practitioner Family
DX: I73.9 Peripheral vascular disease, unspecified (principal); I10 Essential (primary) hypertension; E78.5 Hyperlipidemia, unspecified

== ENCOUNTER → 2022-06-12 | Outpatient (CLI) | payer MEDICARE | LOC: M RAD 12:44 | PROVIDERS: ATTEND Surgery Vascular Surgery | DX: I73.9 Peripheral vascular disease, unspecified (principal) ==

== ENCOUNTER → 2023-07-06 | Outpatient (REF) | payer MEDICARE ==
[2023-07-06 18:16] LABS: BASO # 0.1 10^3/uL (0.0-0.2); BASO % 0.8 % (0.0-1.0); EOS # 0.1 10^3/uL (0.0-0.5); EOS % 2.1 % (0.0-3.0); HEMATOCRIT 36.7 % (36.0-47.0); HEMOGLOBIN 12.2 g/dl (12.0-15.5); LYMPH % 31.9 % (24.0-44.0); MEAN CORPUSCULAR HEMOGLOBIN 31.5 pg (27.0-33.0); MEAN CORPUSCULAR HGB CONC 33.2 g/dl (32.0-36.5); MEAN CORPUSCULAR VOLUME 94.8 fl (80.0-96.0); MONO # 0.7 10^3/uL (0.0-0.8); MONO % 11.5 % (2.0-8.0); NEUTROPHILS # 3.3 10^3/uL (1.5-8.5); NEUTROPHILS % 53.4 % (36.0-66.0); PLATELET COUNT, AUTOMATED 226 10^3/uL (150-450); RED BLOOD COUNT 3.87 10^6/uL (4.00-5.40); WHITE BLOOD COUNT 6.2 10^3/uL (4.0-10.0)
[2023-07-06 18:46] LABS: THYROID STIMULATING HORMONE 3.274 uIU/ML (0.55-4.78); TOTAL 25(OH) VITAMIN D 22.2 NG/ML (20.0-100.0)
[2023-07-06 18:47] LABS: ALBUMIN 3.7 G/DL (3.2-5.2); BILIRUBIN,TOTAL 0.4 MG/DL (0.3-1.2); CALCIUM LEVEL 9.3 MG/DL (8.3-10.6); CHOLESTEROL RISK RATIO 2.64 (<5); CREATININE FOR GFR 1.07 MG/DL (0.55-1.30); FREE T4 0.84 NG/DL (0.89-1.76); GLOMERULAR FILTRATION RATE 52.3 (>32); HDL CHOLESTEROL 77.8 MG/DL (>40); LDL CHOLESTEROL 116.2 MG/DL (<100); NON-HDL-C 128.2 MG/DL; POTASSIUM SERUM 4.1 MMOL/L (3.5-5.1); TOTAL PROTEIN 6.7 G/DL (5.7-8.2)
== END ==
LOC: M SFHCCLAY 09:57
PROVIDERS: ATTEND Nurse Practitioner Family
DX: I73.9 Peripheral vascular disease, unspecified (principal); I10 Essential (primary) hypertension; E78.5 Hyperlipidemia, unspecified; M11.20 Other chondrocalcinosis, unspecified site; Z79.899 Other long term (current) drug therapy

== ENCOUNTER → 2023-08-21 | Outpatient (REF) | payer MEDICARE ==
[2023-08-21 18:32] LABS: BASO # 0.1 10^3/uL (0.0-0.2); BASO % 0.5 % (0.0-1.0); EOS # 0.1 10^3/uL (0.0-0.5); EOS % 1.5 % (0.0-3.0); HEMATOCRIT 35.9 % (36.0-47.0); HEMOGLOBIN 12.1 g/dl (12.0-15.5); LYMPH # 2.1 10^3/uL (1.5-5.0); LYMPH % 22.8 % (24.0-44.0); MEAN CORPUSCULAR HEMOGLOBIN 31.2 pg (27.0-33.0); MEAN CORPUSCULAR HGB CONC 33.7 g/dl (32.0-36.5); MEAN CORPUSCULAR VOLUME 92.5 fl (80.0-96.0); MONO # 1.1 10^3/uL (0.0-0.8); MONO % 12.4 % (2.0-8.0); NEUTROPHILS # 5.7 10^3/uL (1.5-8.5); NEUTROPHILS % 62.5 % (36.0-66.0); PLATELET COUNT, AUTOMATED 224 10^3/uL (150-450); RED BLOOD COUNT 3.88 10^6/uL (4.00-5.40); WHITE BLOOD COUNT 9.2 10^3/uL (4.0-10.0)
[2023-08-21 19:07] LABS: THYROID STIMULATING HORMONE 3.158 uIU/ML (0.55-4.78)
[2023-08-21 19:08] LABS: TOTAL 25(OH) VITAMIN D 18.3 NG/ML (20.0-100.0)
[2023-08-21 19:09] LABS: FREE T4 0.84 NG/DL (0.89-1.76)
[2023-08-21 19:11] LABS: ALBUMIN 3.6 G/DL (3.2-5.2); BILIRUBIN,TOTAL 0.4 MG/DL (0.3-1.2); CALCIUM LEVEL 9.3 MG/DL (8.3-10.6); CHOLESTEROL RISK RATIO 2.37 (<5); CREATININE FOR GFR 1.09 MG/DL (0.55-1.30); GLOMERULAR FILTRATION RATE 51.2 (>32); HDL CHOLESTEROL 71.2 MG/DL (>40); NON-HDL-C 97.8 MG/DL; PHOSPHORUS LEVEL 3.7 MG/DL (2.4-5.1); TOTAL PROTEIN 6.7 G/DL (5.7-8.2)
[2023-08-21 19:24] LABS: PTH INTACT 69.8 PG/ML (18.5-88.0)
== END ==
LOC: M SFHCCLAY 09:25
PROVIDERS: ATTEND Nurse Practitioner Family
DX: I73.9 Peripheral vascular disease, unspecified (principal); I10 Essential (primary) hypertension; E78.5 Hyperlipidemia, unspecified; M11.20 Other chondrocalcinosis, unspecified site; D64.9 Anemia, unspecified; Z79.899 Other long term (current) drug therapy

== ENCOUNTER → 2024-08-20 | Outpatient (REF) | payer MEDICARE ==
[2024-08-20 17:03] LABS: ALBUMIN 3.5 G/DL (3.2-5.2); BILIRUBIN,TOTAL 0.5 MG/DL (0.3-1.2); CHOLESTEROL RISK RATIO 2.61 (<5); CREATININE FOR GFR 0.95 MG/DL (0.55-1.30); GLOMERULAR FILTRATION RATE 59.8 (>32); HDL CHOLESTEROL 73.4 MG/DL (>40); MAGNESIUM LEVEL 1.8 MG/DL (1.8-2.4); NON-HDL-C 118.6 MG/DL; POTASSIUM SERUM 3.7 MMOL/L (3.5-5.1); TOTAL PROTEIN 6.7 G/DL (5.7-8.2)
[2024-08-20 17:06] LABS: FREE T4 1.01 NG/DL (0.89-1.76); THYROID STIMULATING HORMONE 1.943 uIU/ML (0.55-4.78); TOTAL 25(OH) VITAMIN D 15.6 NG/ML (20.0-100.0)
[2024-08-20 17:07] LABS: BASO # 0.1 10^3/uL (0.0-0.2); EOS # 0.2 10^3/uL (0.0-0.5); EOS % 2.7 % (0.0-3.0); HEMATOCRIT 35.3 % (36.0-47.0); HEMOGLOBIN 11.7 g/dl (12.0-15.5); LYMPH # 1.7 10^3/uL (1.5-5.0); LYMPH % 27.2 % (24.0-44.0); MEAN CORPUSCULAR HEMOGLOBIN 31.2 pg (27.0-33.0); MEAN CORPUSCULAR HGB CONC 33.1 g/dl (32.0-36.5); MEAN CORPUSCULAR VOLUME 94.1 fl (80.0-96.0); MONO # 0.8 10^3/uL (0.0-0.8); MONO % 12.2 % (2.0-8.0); NEUTROPHILS # 3.6 10^3/uL (1.5-8.5); NEUTROPHILS % 56.7 % (36.0-66.0); PLATELET COUNT, AUTOMATED 202 10^3/uL (150-450); RED BLOOD COUNT 3.75 10^6/uL (4.00-5.40); WHITE BLOOD COUNT 6.3 10^3/uL (4.0-10.0)
== END ==
LOC: M SFHCCLAY 09:36
PROVIDERS: ATTEND Nurse Practitioner Family
DX: I73.9 Peripheral vascular disease, unspecified (principal); I10 Essential (primary) hypertension; E78.5 Hyperlipidemia, unspecified; M11.20 Other chondrocalcinosis, unspecified site; Z79.899 Other long term (current) drug therapy; D64.9 Anemia, unspecified

== ENCOUNTER → 2024-11-03 | Outpatient (REF) | payer MEDICARE ==
[2024-11-03 13:01] LABS: CREATININE FOR GFR 1.07 MG/DL (0.55-1.30); GLOMERULAR FILTRATION RATE 51.5 (>32)
== END ==
LOC: M SFHCCLAY 09:31
PROVIDERS: ATTEND Nurse Practitioner Family
DX: R19.7 Diarrhea, unspecified (principal)

== ENCOUNTER → 2024-11-05 | Outpatient (CLI) | payer MEDICARE ==
[~2024-11-05] MED LIST changes: +GASTROGRAFIN SOLUTION 30ML As Ordered ONE; +ISOVUE-370 76% 100ML VIAL As Ordered ONE
== END ==
LOC: M RAD 12:18
PROVIDERS: ATTEND Nurse Practitioner Family
DX: R19.4 Change in bowel habit (principal); K86.2 Cyst of pancreas
CPT/HCPCS: 74177; Q9963; Q9967

== ENCOUNTER 2025-01-06 07:49 | Day surgery (SDC) | payer MEDICARE ==
[~2025-01-06] VITALS: Ht 152.4 cm; Wt 40.7 kg
[~2025-01-06 07:49] MED LIST changes: +ERGO500029 PO; -GASTROGRAFIN SOLUTION 30ML As Ordered ONE; -ISOVUE-370 76% 100ML VIAL As Ordered ONE; +LIDOCAINE 2% 100 MG/5 ML SDV (FOR ANES.) As Ordered ONE; -PRAV10TA3 PO; +PRAV10TA43 PO; +PRAV20TA78 PO
[2025-01-06 09:37] VITALS: TEMP 97.3
[2025-01-06 09:55] VITALS: BP 130/57; O2SAT 98
== END 2025-01-06 10:08 | disposition home or self-care (01) ==
LOC: M OPP 07:49
PROVIDERS: ATTEND Surgery
DX: K63.5 Polyp of colon (principal); K57.30 Diverticulosis of large intestine without perforation or abscess without bleeding; K52.9 Noninfective gastroenteritis and colitis, unspecified; R63.4 Abnormal weight loss; K29.50 Unspecified chronic gastritis without bleeding; K22.89 Other specified disease of esophagus; K31.89 Other diseases of stomach and duodenum; R10.13 Epigastric pain; R14.0 Abdominal distension (gaseous); Z88.8 Allergy status to other drugs, medicaments and biological substances; Z91.040 Latex allergy status; Z79.899 Other long term (current) drug therapy
CPT/HCPCS: 43239; 45380; 88305; J3010